=== PATIENT | female | born 1990 | race Hispanic/Latino ===

== ENCOUNTER 2018-03-06 19:56 | Emergency (ER) | payer OTHER ==
[2018-03-06 20:00] VITALS: RESP 16; TEMP 99.2; O2SAT 99
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
[2018-03-06 22:13] VITALS: BP 128/78; PULSE 82
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
== END 2018-03-06 22:12 | disposition home or self-care (01) ==
LOC: H.ER 19:56
DX: M54.9 Dorsalgia, unspecified (principal); M54.2 Cervicalgia; V43.52XA Car driver injured in collision with other type car in traffic accident, initial encounter; Y92.410 Unspecified street and highway as the place of occurrence of the external cause